=== PATIENT | female | born 1975 | race Caucasian/White ===

== ENCOUNTER → 2018-06-24 | Outpatient (CLI) | payer OTHER ==
--- NOTE | 2018-06-24 12:30 | MAM ---
EXAM DESCRIPTION: Diagnostic Mammo,Bilateral (accession [id number]), Breast,Bilateral (accession [id number]): Ultrasound CLINICAL HISTORY: 43 yearsFemalePAIN AND LUMP BILATERAL PER CBE. No personal history of breast cancer. No history of trauma bilaterally, prior breast procedure bilaterally, mastitis, or infection or inflammation Remote family history of breast and ovarian cancer. Childbirth. Premenopausal. No HRT. Lifetime risk of developing breast cancer (Tyrer-Cuzick model)(%): 6.6. COMPARISON: Baseline study at this facility. TECHNIQUE: Bilateral LM, CC, and MLO projection full-field images, digital mammographic tomosynthesis technique. Bilateral 2-D digital full-field MLO images. Digital spot magnification lateral right breast CC and LM projections. CAD not utilized. . Transcutaneous scanning of the bilateral breasts utilizing turcios-scale and Doppler modes. Scanning performed by the pediatric oncologist and Dr. Langley. FINDINGS: The breast parenchymal density pattern is: Heterogeneously dense breast tissue, which may obscure small masses. No skin thickening or nipple retraction skin marker is visualized at the 8:00 position of the lateral mid right breast, approximately 5 cm from the nipple. Unusual appearing mass abutting the marker which is oval-shaped with a mostly well-defined capsule and central calcification or extremely dense tissues. Questionable calcification of the capsule. Approximate dimensions are 3.3 cm long axis x 2.9 cm short axis transverse x 2.9 cm craniocaudal. Skin marker on the left breast is in the anterior third approximately 3 cm from the nipple approximately 2:00 position. Associated with adjacent dense fibroglandular tissues. No calcifications. Ultrasound: Scanning of the lateral and upper outer quadrant of the middle third of the right breast. Unusual heterogeneous echo lesion with hypoechoic region similar to fat and hyperechoic regions similar to fibroglandular tissues. Wider than tall orientation. Predominantly posterior shadowing. Partially well-defined capsule. Approximate dimensions 2.8 x 1.4 x 3.1 cm. Largest axis is radial orientation with the nipple. No fluid component and not vascular. At the 8:00 position 5 cm from the nipple is a anechoic oval-shaped cyst with circumscribed margins and posterior enhancement. 4.7 x 4.2 mm. Scanning of the anterior third of the upper-outer quadrant of the left breast. Mostly fibroglandular and fibrocystic tissues especially at the 2:00 position, 2 cm from the nipple. 4 x 6 mm circumscribed anechoic cyst, wider than tall orientation and posterior acoustic enhancement. No dominant solid mass.. No abnormal vascularity. No overlying skin changes. No large calcifications. IMPRESSION: Abnormal mass with unusual appearance on mammogram and ultrasound. Some features of malignancy, primary or metastatic. Could also represent degenerating lymph node, unusual appearance of a fibroadenoma, previously unknown/occult trauma or infection. ASSESSMENT: BI-RADS CATEGORY 4: SUSPICIOUS. SUB-CATEGORY 4A - LOW SUSPICION FOR MALIGNANCY. FOLLOW up: Surgical consultation and tissue diagnosis should be considered. The FINDINGS and FOLLOW-UP plan were reviewed in person with the patient following the examination. Written communication explaining the IMPRESSION and FOLLOW-UP will be mailed to the patient and referring care provider. Electronically signed by: Logan Langley MD 06/24/2018 12:27 PM CDT
== END ==
LOC: MAMMO 08:00
PROVIDERS: ATTEND Family Medicine
DX: N63.21 Unspecified lump in the left breast, upper outer quadrant (principal); N63.11 Unspecified lump in the right breast, upper outer quadrant